=== PATIENT | female | born 2000 | race Two or more races ===

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

== ENCOUNTER 2019-04-28 08:26 | Day surgery (SDC) | payer OTHER ==
[~2019-04-28] VITALS: Ht 160 cm; Wt 70.7 kg
[~2019-04-28 08:26] MED LIST changes: +BAYE325T12 PO; +LR 1,000 ML IV ONE; +ceFAZolin SOD 2 GM in IV 1 EA IV ONE
[2019-04-28] MEDS ORDERED: LIDOCAINE 1% MDV 20ML VIAL ONE (08:27)
[2019-04-28] MEDS ORDERED: EPINEPHrine INJ 1 MG/ML 1ML AMP ONE (08:27)
[2019-04-28] MEDS ORDERED: PROPOFOL 200 MG/20 ML VIAL As Ordered ONE (08:29)
[2019-04-28] MEDS ORDERED: ROCURONIUM BROMIDE 50 MG/5 ML VIAL As Ordered ONE (08:30)
[2019-04-28] MEDS ORDERED: LIDOCAINE 2% INJ 100 MG/5 ML SDV (FOR ANES.) As Ordered ONE (08:30)
[2019-04-28] MEDS ORDERED: dexameTHASONE 4 MG/ML 1ML VIAL (J1100) As Ordered ONE (08:30)
[2019-04-28] MEDS ORDERED: ONDANSETRON 4MG/2ML VIAL (J2405) As Ordered ONE (08:30)
[2019-04-28] MEDS ORDERED: fentaNYL 100 MCG/2 ML INJECTION (J3010) As Ordered ONE ×3 (09:55→14:29)
[2019-04-28] MEDS ORDERED: MIDAZOLAM INJ 2 MG/2 ML VIAL (J2250) As Ordered ONE ×2 (09:55→11:31)
[2019-04-28] MEDS ORDERED: BUPIVACAINE HCL 0.25% 30 ML VIAL As Ordered ONE (09:55)
[2019-04-28] MEDS ORDERED: MIDAZOLAM INJ 2 MG/2 ML VIAL (J2250) IV ONE (10:45)
[2019-04-28] MEDS ORDERED: fentaNYL 100 MCG/2 ML INJECTION (J3010) IV ONE (10:45)
[2019-04-28] MEDS ORDERED: BUPIVACAINE HCL 0.5% 10 ML VIAL As Ordered ONE (11:48)
[2019-04-28] MEDS ORDERED: ACETAMINOPHEN 1000MG 100ML IV BTL (OFIRMEV) (J0131 PER 10MG) As Ordered ONE (12:50)
--- NOTE | 2019-04-28 14:05 | REP ---
Left knee: Three views. History: Intraoperative imaging. Internal derangement left knee instability. 10 seconds of fluoroscopy time is reported. Findings: A sequence of three last image hold fluoroscopically obtained spot radiographs of the left knee document metallic pin placement in the medial femoral condyle. Electronically Signed by Michael Gutierres MD 04/28/2019 02:17 P
[2019-04-28] MEDS ORDERED: KETOROLAC 60 MG/2 ML VIAL (J1885) As Ordered ONE (14:42)
[2019-04-28] MEDS ORDERED: METOCLOPRAMIDE INJ 10MG/2ML VIAL (J2765) IV PRN (15:15)
[2019-04-28] MEDS ORDERED: LR 1,000 ML IV SCH ×2 (15:15→16:00)
[2019-04-28] MEDS ORDERED: ONDANSETRON 4MG/2ML VIAL (J2405) IV PRN (15:15)
[2019-04-28] MEDS ORDERED: HYDROMORPHONE HCL 0.5 MG/ 0.5 ML SYRINGE (J1170 PER 1) IV PRN (15:15)
[2019-04-28] MEDS ORDERED: fentaNYL 100 MCG/2 ML INJECTION (J3010) IV PRN (15:15)
[2019-04-28] MEDS ORDERED: KETOROLAC 30 MG/ML VIAL (J1885) IV PRN (15:15)
[2019-04-28] MEDS ORDERED: oxyCODONE 5MG TAB PO PRN (15:15)
--- NOTE | 2019-04-28 15:50 | RO ---
DATE OF SURGERY: 04/28/2019 PREOPERATIVE DIAGNOSES: 1. Left knee recurrent patellar instability. 2. Left knee lateral patellar compression syndrome. POSTOPERATIVE DIAGNOSES: 1. Left knee recurrent patellar instability. 2. Left knee lateral patellar compression syndrome. PROCEDURE: 1. Left knee arthroscopy with an arthroscopic lateral release. 2. Left knee open medial patellofemoral ligament reconstruction with allograft. SURGEON: Dr. Xiang Cordero [employer] [place]: [place] ANESTHESIA: General with preoperative nerve block. IV FLUIDS: Lactated Ringer's. ESTIMATED BLOOD LOSS: 5 mL. IMPLANTS. Arthrex 3 mm SutureTak times two and Arthrex 5.5 mm corkscrew times one and a gracilis allograft. CLOSURE: Nylon. PROCEDURE: Patient identified in the preoperative holding area. The left leg marked by myself. She had an abductor canal block by anesthesia. She was brought to the operating room, placed supine on a well-padded operating room (OR) table and all bony prominences well padded. General anesthesia was induced. Exam under anesthesia revealed range of motion from 0-140 degrees, negative J sign, stable to varus and valgus stress, and grade 1 A Arin. She had four quadrants of lateral patellar mobility with no endpoint. She was easily dislocated. There was lateral patellar tilt. I was unable to mark to neutral. A well-padded tourniquet was applied to the left thigh. The left leg was then prepped and draped in normal sterile fashion from the toes up to the tourniquet. She received appropriate IV antibiotics within 1 hour of incision. Tenzin Alonzo was present for the entire procedure and participated in all essential portions of procedure. This included patient positioning and draping, preparing the graft, holding retractors, stabilizing the patella while drilling for anchors and graft passage and wound closure. The left leg was exsanguinated with an Esmarch bandage and tourniquet inflated to 275 mmHg. A standard anterolateral portal made with #11 blade. A 30 degree arthroscope was introduced into the joint with some grade 1 chondromalacia at the distal medial patella, but overall the patellofemoral joint was in great condition. The patella subluxated laterally. There was significant lateral patellar tilt. Medial compartment was entered where the chondral surfaces were noted to be intact and no medial meniscus tears. The anterior cruciate ligament (ACL) was intact. In the lateral compartment no lateral meniscus tears and the chondral surfaces were intact. An anteromedial portal was created under direct visualization. Arthroscopy portals were then switched, and using radiofrequency cautery I performed a limited lateral release taking care not to extend into the vastus lateralis. This was about a 2.5 cm maximum from proximal to distal lateral release through the entire deep lateral retinaculum and some of the superficial retinaculum but not full thickness. There was decreased tilt after the procedure. The knee was irrigated and drained. The gracilis allograft was thawed on the back table and then whip stitched with #2-0 Vicryl by my branch assistant. I made a longitudinal incision with a #15 blade along the medial border of the patella and then, the superficial retinaculum was sharply elevated off the medial border of patella taking care to preserve a flap for later repair. I then dissected between layers two and three heading towards the medial epicondyle to facilitate graft passage at a later time. A trough was then created in the medial border of the patella with a rongeur. I then drilled and placed two 3 mm SutureTaks from Arthrex. These are double-loaded 3 mm SutureTaks. There were spaced just over a centimeter apart, one at the equator and one a centimeter proximal to that. They both had great fixation. I then made an incision between the abductor tubercle and medial epicondyle with a #15 blade. Dissection with Metzenbaum scissors down to the deep fascia. The valley between the abductor tubercle and medial epicondyle was palpated, and then a K-wire was placed at that point on power. A large C-arm was then used, AP and lateral views, to confirm the appropriate position. The gracilis graft was then secured to the medial border of patella using a curved free needle using all the limbs from the suture anchors and I was able to obtain secure fixation. Excess suture trimmed was discarded. The Vicryl sutures in each tail of the graft were then passed with a passing stitch between layers two and three and retrieved out the far medial incision. The K-wire was removed and then I punched for a 5.5 mm corkscrew anchor. The anchor was then placed with excellent fixation. This was a double-loaded anchor. All incisions were irrigated at this point. Curved free needle was then used to secure each limb of the allograft, one to the TigerWire and one to the FiberWire sutures from the corkscrew. Prior blocking the construct in place lateral patellar translation was assessed by tensioning the free end of the corkscrew, which reduced the graft to the anchor. Lateral patellar translation was assessed in full extension and then increasing degrees of knee flexion. I then further tightened up the construct with a total of six locking passes with the free needle and then reassessed lateral patellar translation and was very pleased. She had two quadrants of lateral patellar mobility with a firm endpoint without over tensioning. I was able to flex the knee greater than 90 degrees without any difficulty. Knots were then tied by hand to lock the construct in place with the knee in 40 degrees of flexion. Excess graft and suture was trimmed and discarded. All incisions were re-irrigated. The arthrotomy was then closed with #1 Vicryl suture in a [id number] fashion. Subcuticular closure with #2-0 Vicryl and a running nylon. The far medial incision was closed with #2-0 Vicryl and nylon. I reassessed patellar translation and again, unchanged two quadrants lateral patellar mobility with a firm endpoint. Of note, her right knee had significant lateral patellar laxity so I was unable to compare in a useful manner to that side. Tourniquet was let down with excellent reperfusion. Bulky sterile dressing was applied. She was then placed into a hinged knee brace locked in extension. She was transferred to postanesthesia care unit (PACU) in stable condition. All counts correct times two. Complications none.
[2019-04-28 17:00] VITALS: BP 114/58
== END 2019-04-28 17:05 | disposition home or self-care (01) ==
LOC: M SDC 08:26
PROVIDERS: ATTEND Orthopaedic Surgery
DX: M22.02 Recurrent dislocation of patella, left knee (principal); M22.2X2 Patellofemoral disorders, left knee; F41.9 Anxiety disorder, unspecified; F32.9 Major depressive disorder, single episode, unspecified; F17.210 Nicotine dependence, cigarettes, uncomplicated; Z88.0 Allergy status to penicillin; Z79.82 Long term (current) use of aspirin
CPT/HCPCS: 27427; 29873; 64447; 76000; 81025; C1713; C1762; J0131; J0690; J1100; J1885; J2250; J2405; J3010